=== PATIENT | male | born 1970 | race Caucasian/White ===

== ENCOUNTER → 2017-04-02 | Outpatient (CLI) | payer MEDICARE, OTHER ==
[~2017-04-02] MED LIST: ASPI81TA39 PO; B CO1CAP4 PO; BISA5TAB12 PO; CARV40CR PO; HYDR10TA31 PO; INSLAN SQ; INSU100C3 SQ; ISOS1TAB2 PO; PANT40TA25 PO; PHOSLOC PO; RIFA200T2 PO; SOTA80TA48 PO; THIA100 PO
== END | disposition home or self-care (01) ==
LOC: RADPV 10:32
PROVIDERS: ATTEND Hospitalist
DX: C64.1 Malignant neoplasm of right kidney, except renal pelvis (principal); Z90.5 Acquired absence of kidney
CPT/HCPCS: 76770

== ENCOUNTER → 2017-10-27 | Outpatient (CLI) | payer MEDICARE, OTHER ==
[~2017-10-27] MED LIST changes: -THIA100 PO; +THIA100T67 PO
== END | disposition home or self-care (01) ==
LOC: RADPV 08:38
PROVIDERS: ATTEND Internal Medicine Endocrinology, Diabetes & Metabolism
DX: M25.561 Pain in right knee (principal); Z89.511 Acquired absence of right leg below knee; I11.0 Hypertensive heart disease with heart failure; I50.9 Heart failure, unspecified; E11.9 Type 2 diabetes mellitus without complications
CPT/HCPCS: 93971